=== PATIENT | female | born 1940 | race Caucasian/White ===

== ENCOUNTER → 2016-10-18 | Outpatient (CLI) | payer MEDICARE, BC ==
--- NOTE | 2016-10-18 13:52 | XR ---
EXAMINATION TYPE: XR chest 2V DATE OF EXAM: 10/18/2016 1:46 PM COMPARISON: Chest x-ray February 26, 2016. CT chest June 02, 2016. HISTORY: Carcinoma of right breast per order. TECHNIQUE: Frontal and lateral views of the chest are obtained. FINDINGS: Large thick-walled cavitary lesion superior aspect left lower lobe is redemonstrated. Righ t lung is clear. No pleural effusion or pneumothorax is seen bilaterally. The cardiac silhouette size is stable and within normal limits with atherosclerotic thoracic aorta. The osseous structures are demineralized. There is high riding right humeral head suggesting chronic rotator cuff tear. There i s deformity of the distal right clavicle which is superiorly migrated felt chronic. Surgical clips in the right breast are noted. IMPRESSION: Stable large cavitary mass superior left lower lobe which was biopsied November 2015. No acu te cardiopulmonary process.
== END | disposition home or self-care (01) ==
LOC: RADXRMAIN 13:26
PROVIDERS: ATTEND Internal Medicine Geriatric Medicine
DX: C50.411 Malignant neoplasm of upper-outer quadrant of right female breast (principal); M54.9 Dorsalgia, unspecified; R91.1 Solitary pulmonary nodule; I10 Essential (primary) hypertension; E78.5 Hyperlipidemia, unspecified; M15.0 Primary generalized (osteo)arthritis; M81.0 Age-related osteoporosis without current pathological fracture; G45.9 Transient cerebral ischemic attack, unspecified; Z71.3 Dietary counseling and surveillance; Z71.89 Other specified counseling
CPT/HCPCS: 71020

== ENCOUNTER 2017-01-24 11:30 | Emergency (ER) | payer MEDICARE, BC ==
[2017-01-24 12:37] LABS: Basophils % (A) 0 %; CH 32.2; CHCM 34.5; Eosinophils # (A) 0.1 k/uL (0-0.7); Eosinophils % (A) 1 %; HCT 42.6 % (34.0-46.0); HDW 2.33; HGB 14.3 gm/dL (11.4-16.0); Luc # (Auto) 0.06; Luc % (Auto) 1; Lymphocytes % (A) 12 %; MCH 31.4 pg (25.0-35.0); MCHC 33.5 g/dL (31.0-37.0); MCV 93.8 fL (80.0-100.0); Mean Platelet Volume 7.6; Monocytes # (A) 0.4 k/uL (0-1.0); Monocytes % (A) 5 %; Neutrophils # (A) 6.9 k/uL (1.3-7.7); Neutrophils % (A) 81 %; RBC 4.55 m/uL (3.80-5.40); RDW 14.1 % (11.5-15.5); WBC 8.5 k/uL (3.8-10.6); WBC (Perox) 8.59
[2017-01-24 12:48] LABS: ALT 47 U/L (9-52); AST 48 U/L (14-36); Alkaline Phosphatase 77 U/L (38-126); Amylase 33 U/L (30-110); Anion Gap 12 mmol/L; Blood Urea Nitrogen 14 mg/dL (7-17); Calcium 9.4 mg/dL (8.4-10.2); Carbon Dioxide 22 mmol/L (22-30); Chloride 102 mmol/L (98-107); Glucose 95 mg/dL (74-99); Non-African American GFR(MDRD) >60 (>60 ml/min/1.73 sqM); Sodium 136 mmol/L (137-145); Total Bilirubin 1.2 mg/dL (0.2-1.3); Total Protein 7.4 g/dL (6.3-8.2)
[2017-01-24 12:51] LABS: Potassium 4.3 mmol/L (3.5-5.1)
--- NOTE | 2017-01-24 12:58 | XR ---
EXAMINATION TYPE: XR chest 2V DATE OF EXAM: 01/24/2017 COMPARISON: Chest x-ray October 18, 2016. HISTORY: History of breast cancer with lung mass. TECHNIQUE: Frontal and lateral views of the chest are obtained. FINDINGS: There is persistent thick-walled cavitary lesion superior aspect left lower lobe appears m ore prominent in size versus prior. Right lung remains clear. No pleural effusion or pneumothorax is seen bilaterally. The cardiac silhouette size remains within normal limits without sclerotic and ect atic thoracic aorta. There is partial visualization of surgical change in the lumbar spine. There is degenerative change right glenohumeral joint. Surgical clips overlie the right breast. Cholecystectom y clips are seen. IMPRESSION: Redemonstration of thick-walled cavitary lesion superior left lower lobe, differential i ncludes abscess versus neoplasm. No new infiltrate is seen.
[2017-01-24 13:02] LABS: C Reactive Protein 5.2 mg/L (<10.0)
--- NOTE | 2017-01-24 13:03 | XR ---
EXAMINATION TYPE: XR KUB DATE OF EXAM: 01/24/2017 12:29 PM CLINICAL HISTORY: Abdominal pain for 3 days. TECHNIQUE: Single upright KUB image of the abdomen is obtained. COMPARISON: None. FINDINGS: Scattered gas is seen in non-distended stomach and small bowel loops. Gas and fecal materia l is seen in non-distended colon. Cholecystectomy clips are present. Extensive surgical change from L 3 through S1 level is present. Metallic hardware from right hip arthroplasty is seen. No pneumoperito neum is present. Surgical clips overlie the right breast. Lung bases are clear. IMPRESSION: Overall nonobstructive bowel gas pattern.
--- NOTE | 2017-01-24 13:17 | CT ---
EXAMINATION TYPE: CT brain wo con DATE OF EXAM: 01/24/2017 COMPARISON: 12/22/2015 HISTORY: Patient poor historian. Patient complains of syncopal fall today. CT DLP: 1106 mGycm Automated exposure control for dose reduction was used. FINDINGS: Generalized degenerative change seen with a greater central component. Extensive periventricular low attenuation noted. Intracranial atherosclerotic changes seen. No midline shift. No acute hemorrhage. Abnormal attenuation within the external capsule on the left suggestive of previous ischemia stable f rom previous. IMPRESSION: DEGENERATIVE CHANGE WITH A GREATER CENTRAL COMPONENT. A COMPONENT OF NORMAL PRESSURE HYDROCEPHALUS IN THE DIFFERENTIAL DIAGNOSIS. NEXT NONSPECIFIC WHITE MATTER FINDINGS MOST TYPICAL REMOTE MICROVASCULAR ISCHEMIA..
[2017-01-24 14:13] VITALS: TEMP 97.6
[2017-01-24 14:42] LABS: Amorphous Sediment,Urine Occasional /hpf; Appearance,Urine Cloudy (Clear); Bilirubin,Urine 1+ (Negative); Glucose,Urine (UA) Negative (Negative); Ketones,Urine 1+ (Negative); Leukocyte Esterase,Urine Moderate (Negative); Mucus,Urine Few /hpf; Nitrite,Urine Negative (Negative); Particle Count 10295; Protein,Urine Trace (Negative); RBC,Urine 3 /hpf (0-5); Specific Gravity,Urine 1.016 (1.001-1.035); Squamous Epithelial Cell,Urine 7 /hpf (0-4); UA Billing (MACRO vs. MICRO) MICRO; WBC,Urine 16 /hpf (0-5)
--- NOTE | 2017-01-24 14:49 | ED ---
Abdominal Pain HPI - General Chief Complaint: Abdominal Pain Stated Complaint: ABD PAIN, FALL THIS AM Time Seen by Provider: 01/24/17 11:55 Source: patient Mode of arrival: wheelchair Limitations: no limitations - History of Present Illness Initial Comments: 76 years old female presents with abdominal pain abdominal pain is ongoing for 3 days she denies any nausea no vomiting no diarrhea no constipation pain is in the epigastric area. No chest pain or shortness of breath no pleuritic chest pain. She fell this morning but she denies any injury to her head or neck no chest pain no injuries to the upper or lower extremities. Left system is otherwise unremarkable - Related Data Previous Rx's Medication Instructions Recorded Acetaminophen-Codeine 300-30mg 1 tab PO Q6H PRN #15 tablet 05/26/15 [Tylenol w/codeine #3] Allergies Allergy/AdvReac Type Severity Reaction Status Date / Time No Known Allergies Allergy Verified 01/24/17 13:15 Review of Systems ROS Statement: Those systems with pertinent positive or pertinent negative responses have been documented in the HPI. ROS Other: All systems not noted in ROS Statement are negative. Past Medical History Past Medical History: Cancer, GERD/Reflux, Hyperlipidemia, Hypertension Additional Past Medical History / Comment(s): Metastatic lung mass november [address] Shepard. breast Ca - 2013 status post right lumpectomy History of Any Multi-Drug Resistant Organisms: None Reported Past Surgical History: Back Surgery, Cholecystectomy, Joint Replacement, Orthopedic Surgery Additional Past Surgical History / Comment(s): bilateral bunionectomy, right hip replacement, right breast lumpectomy - no chemo, no radiation, bilateral cataract removal and intraocular lens implants. Past Anesthesia/Blood Transfusion Reactions: No Reported Reaction Past Psychological History: No Psychological Hx Reported Smoking Status: Never smoker Past Alcohol Use History: Daily Past Drug Use History: None Reported - Past Family History Sister(s) Family Medical History: Cancer Additional Family Medical History / Comment(s): Patient has 2 sisters. One sister is alive with dementia. One sister from pancreatic cancer. Brother(s) Family Medical History: Cancer Additional Family Medical History / Comment(s): Brother from spinal cancer Father Additional Family Medical History / Comment(s): Father at age 88 from dementia. Mother Additional Family Medical History / Comment(s): Mother at age 93 from old age with no major medical problems. Son(s) Additional Family Medical History / Comment(s): Patient has 2 sons with no major medical problems. General Exam - General Exam Comments Initial Comments: General: The patient is awake and alert, in no distress, and does not appear acutely ill. Skin: Skin is warm and dry and no rashes or lesions are noted. Eye: Pupils are equal, round and reactive to light, extra-ocular movements are intact; there is normal conjunctiva bilaterally. Ears, nose, mouth and throat: There are moist mucous membranes and no oral lesions. Neck: The neck is supple, there is no tenderness or JVD. Cardiovascular: There is a regular rate and rhythm. No murmur, rub or gallop is appreciated. Respiratory: To auscultation bilateral, no wheezing no rhonchi no distress respiratory garcia noticed Gastrointestinal: Soft, non-distended, non-tender abdomen without masses or organomegaly noted. There is no rebound or guarding present. Bowel sounds are unremarkable. Today exam is absolutely normal there were no focal tenderness areas in the abdomen positive bowel sounds no guarding no rebounds Back: There is no tenderness to palpation in the midline. There is no obvious deformity. Musculoskeletal: Normal ROM, no tenderness, There is no pedal edema. There is no calf tenderness or swelling. No cords were appreciated. Neurological: CN II-XII intact, Cranial nerves III through XII are intact. There are no obvious motor or sensory deficits. Coordination appears grossly intact. Speech is normal. Psychiatric: Cooperative, appropriate mood & affect, normal judgment. Limitations: no limitations Course Vital Signs 01/24/17 01/24/17 01/24/17 11:38 13:11 14:10 Temperature 98.3 F 97.2 F L 97.6 F Pulse Rate 108 H 97 119 H Respiratory 20 14 15 Rate Blood Pressure 128/65 143/74 140/82 O2 Sat by Pulse 97 95 93 L Oximetry Patient was reviewed at 1430 had CBC, His metabolic panel KUB are unremarkable My head CT was reviewed, there is a question of for chronic ischemic changes and normal rash or hydrocephalus, this was discussed with the Dr. Ashby she has a history of urinary incontinence for last 2 years and her gait has been quite wobbly for the last 2 years as well though she has no dementia Dr. Ashby he agreed to see her as outpatient though she is edematous andCenter Dr. Liu was not available today. X-rays and there is a question of fluid level in a finding which is consistent with neoplasm Is a Urinalysis Is Also Positive Considering All That Number Recommended We Admit Him under Dr. Patricia Service - Reevaluation(s) Reevaluation #2: 01/24/17 15:13 She agreed to stay in PLACE DR. PATRICIA AND RECOMMENDED CT PULMONARY MEDICINE TO TAKE A LOOK AT THE LESION ON THE LEFT SIDE SEE IF THERE IS A NEW ABSCESS IN THE THE AREA WHERE THERE IS A SUSPICION OF FOR CANCER Medical Decision Making - Lab Data Result diagrams: 01/24/17 12:24 01/24/17 12:24 Lab Results 01/24/17 01/24/17 01/24/17 Range/Units 12:24 12:24 14:24 WBC 8.5 (3.8-10.6) k/uL RBC 4.55 (3.80-5.40) m/uL Hgb 14.3 (11.4-16.0) gm/dL Hct 42.6 (34.0-46.0) % MCV 93.8 (80.0-100.0) fL MCH 31.4 (25.0-35.0) pg MCHC 33.5 (31.0-37.0) g/dL RDW 14.1 (11.5-15.5) % Plt Count 292 (150-450) k/uL Neutrophils % 81 % Lymphocytes % 12 % Monocytes % 5 % Eosinophils % 1 % Basophils % 0 % Neutrophils # 6.9 (1.3-7.7) k/uL Lymphocytes # 1.0 (1.0-4.8) k/uL Monocytes # 0.4 (0-1.0) k/uL Eosinophils # 0.1 (0-0.7) k/uL Basophils # 0.0 (0-0.2) k/uL Sodium 136 L (137-145) mmol/L Potassium 4.3 (3.5-5.1) mmol/L Chloride 102 (98-107) mmol/L Carbon Dioxide 22 (22-30) mmol/L Anion Gap 12 mmol/L BUN 14 (7-17) mg/dL Creatinine 0.66 (0.52-1.04) mg/dL Est GFR (MDRD) Af Amer >60 (>60 ml/min/1.73 sqM) Est GFR (MDRD) Non-Af >60 (>60 ml/min/1.73 sqM) Glucose 95 (74-99) mg/dL Calcium 9.4 (8.4-10.2) mg/dL Total Bilirubin 1.2 (0.2-1.3) mg/dL AST 48 H (14-36) U/L ALT 47 (9-52) U/L Alkaline Phosphatase 77 (38-126) U/L C-Reactive Protein 5.2 (<10.0) mg/L Total Protein 7.4 (6.3-8.2) g/dL Albumin 4.2 (3.5-5.0) g/dL Amylase 33 (30-110) U/L Lipase 58 (23-300) U/L Urine Color Yellow Urine Appearance Cloudy H (Clear) Urine pH 6.0 (5.0-8.0) Ur Specific [place] 1.016 (1.001-1.035) Urine Protein Trace H (Negative) Urine Glucose (UA) Negative (Negative) Urine Ketones 1+ H (Negative) Urine Blood Negative (Negative) Urine Nitrite Negative (Negative) Urine Bilirubin 1+ H (Negative) Urine Urobilinogen 2.0 (<2.0) mg/dL Ur Leukocyte Esterase Moderate H (Negative) Urine RBC 3 (0-5) /hpf Urine WBC 16 H (0-5) /hpf Ur Squamous Epith Cells 7 H (0-4) /hpf Amorphous Sediment Occasional H (None) /hpf Hyaline Casts 23 H (0-2) /lpf Urine Mucus Few H (None) /hpf Disposition Clinical Impression: Abdominal pain, UTI (urinary tract infection), Lung abscess Disposition: ADMITTED IP TO THIS HOSP Condition: Good Referrals: Aren Patricia MD [Primary Care Provider] - 1-2 days
[2017-01-24] MEDS ORDERED: RX INFO: IV CONTRAST WAS GIVEN 1 EACH MISC MISCELLANE PRN (15:24)
[2017-01-24 16:16] VITALS: RESP 18
--- NOTE | 2017-01-24 16:30 | CT ---
EXAMINATION TYPE: CT ChestAbdPelvis w con DATE OF EXAM: 01/24/2017 COMPARISON: NONE HISTORY: Mid abdominal pain x 3 days. Fall from standing. CT DLP: 464.70 mGycm Automated exposure control for dose reduction was used. CONTRAST: CT scan of the chest, abdomen and pelvis is performed without Oral Contrast and with IV Contrast, pat ient injected with 100 mL of Omnipaque 300. FINDINGS: LUNGS: There is a large hilar mass measuring 5 cm with an associated cavitary lesion in the left uppe r lobe measuring approximately 6.2 x 4.2 cm. This does result in some constriction of the left pulmon herberth arterial branches. No pleural effusion or pneumothorax. Subpleural less than 5 mm nodularity post eriorly in the right lower lobe. Additional punctate 2 mm nodules within the right middle lobe. MEDIASTINUM: There are no greater than 1 cm hilar or mediastinal lymph nodes. No pericardial effusi on is seen. Coronary artery calcification noted. LIVER/GB: 2.3 cm lesion involving the left lobe of the liver measures 15 Hounsfield units suggestive of a cyst and is stable from previous exam. Postcholecystectomy clips are noted.. PANCREAS: No significant abnormality is seen. SPLEEN: No significant abnormality is seen. ADRENALS: 5 mm left adrenal nodule is new. A metastasis is not excluded.. KIDNEYS: No significant abnormality is seen. BOWEL: No significant abnormality is seen. LYMPH NODES: No greater than 1 cm abdominal or pelvic lymph nodes are appreciated. OSSEOUS STRUCTURES: Multilevel degenerative disc disease and facet arthropathy seen. There is postsur gical change of the lower lumbar spine with a grade 1 anterolisthesis at the upper margin of the surg ical levels. Mild endplate deformity seen proximal level of L1 and T12 suggesting and appears stable from the previous CT scan of the chest. OTHER: Calcified fibroids within the uterus noted. Postsurgical change involving the right hip. IMPRESSION: 1. No acute process however, there is a large mass in the left upper lobe suspicious for malignancy w ith adenopathy and additional pulmonary nodules as discussed above. 2. There is a new left adrenal nodule suspicious for metastases.
[2017-01-24 17:36] VITALS: BP 156/87; PULSE 104
== END 2017-01-24 17:36 | disposition other institution (70) ==
LOC: EC 11:30
DX: N39.0 Urinary tract infection, site not specified (principal); J85.2 Abscess of lung without pneumonia; Z85.3 Personal history of malignant neoplasm of breast; Z90.49 Acquired absence of other specified parts of digestive tract
CPT/HCPCS: 99285; 96365; 36415; 80053; 82150; 83690; 85025; 86140; 81001; 71020; 74000; 70450; 71260; 74177; J0696; Q9967

== ENCOUNTER 2017-02-26 09:29 | Inpatient (IN) | payer MEDICARE, BC ==
[2017-02-26] MEDS ORDERED: SODIUM CHLORIDE 0.9% 500 ML IV STA (09:33)
--- NOTE | 2017-02-26 09:48 | ED ---
General Adult HPI - General Stated complaint: Unresponsive Time Seen by Provider: 02/26/17 09:29 Source: RN notes reviewed - History of Present Illness Initial comments: This a 76-year-old female presents emergency department after having had a syncopal episode. Patient states she's had multiple syncopal episodes in the past and he cannot figure out why she is having these events. Patient states that she has having no complaints this time and she did not herself when she fell. According to EMS when they got there she was awake but not answering any questions and she slowly came around and by the time they were 10 minutes at a trip to the hospital she was alert and oriented 3 and talking about the recent news events. called us prior to the patient's arrival and states this happened multiple times and he states he has been told it is not a stroke. Patient denies any headache patient denies numbness weakness. Patient denies lightheadedness dizziness. Patient denies any chest pain palpitations difficulty breathing first breath per patient denies abdominal pain patient denies nausea vomiting diarrhea. Patient's sugar on the way in per EMS was 130. - Related Data Previous Rx's Medication Instructions Recorded Acetaminophen-Codeine 300-30mg 1 tab PO Q6H PRN #15 tablet 05/26/15 [Tylenol w/codeine #3] Allergies Allergy/AdvReac Type Severity Reaction Status Date / Time No Known Allergies Allergy Verified 02/26/17 10:32 Review of Systems ROS Statement: Those systems with pertinent positive or pertinent negative responses have been documented in the HPI. ROS Other: All systems not noted in ROS Statement are negative. Past Medical History Past Medical History: Cancer, GERD/Reflux, Hyperlipidemia, Hypertension Additional Past Medical History / Comment(s): Metastatic lung mass november [address] Shepard. breast Ca - 2013 status post right lumpectomy History of Any Multi-Drug Resistant Organisms: None Reported Past Surgical History: Back Surgery, Cholecystectomy, Joint Replacement, Orthopedic Surgery Additional Past Surgical History / Comment(s): bilateral bunionectomy, right hip replacement, right breast lumpectomy - no chemo, no radiation, bilateral cataract removal and intraocular lens implants. Past Anesthesia/Blood Transfusion Reactions: No Reported Reaction Past Psychological History: No Psychological Hx Reported Smoking Status: Never smoker Past Alcohol Use History: Daily Past Drug Use History: None Reported - Past Family History Sister(s) Family Medical History: Cancer Additional Family Medical History / Comment(s): Patient has 2 sisters. One sister is alive with dementia. One sister from pancreatic cancer. Brother(s) Family Medical History: Cancer Additional Family Medical History / Comment(s): Brother from spinal cancer Father Additional Family Medical History / Comment(s): Father at age 88 from dementia. Mother Additional Family Medical History / Comment(s): Mother at age 93 from old age with no major medical problems. Son(s) Additional Family Medical History / Comment(s): Patient has 2 sons with no major medical problems. General Exam - General Exam Comments Initial Comments: GENERAL: Patient is well-developed and well-nourished. Patient is nontoxic and well- hydrated and is in no acute distress. ENT: Neck is soft and supple. No significant lymphadenopathy is noted. Oropharynx is clear. Moist mucous membranes. Neck has full range of motion without eliciting any pain. EYES: The sclera were anicteric and conjunctiva were pink and moist. Extraocular movements were intact and pupils were equal round and reactive to light. Eyelids were unremarkable. PULMONARY: Unlabored respirations. Good breath sounds bilaterally. No audible rales rhonchi or wheezing was noted. CARDIOVASCULAR: There is a regular rate and rhythm without any murmurs gallops or rubs. ABDOMEN: Soft and nontender with normal bowel sounds. No palpable organomegaly was noted. There is no palpable pulsatile mass. SKIN: Skin is clear with no lesions or rashes and otherwise unremarkable. NEUROLOGIC: Patient is alert and oriented x3. Cranial nerves II through XII are grossly intact. Motor and sensory are also intact. Normal speech, volume and content. Symmetrical smile. MUSCULOSKELETAL: Normal extremities with adequate strength and full range of motion. No lower extremity swelling or edema. No calf tenderness. LYMPHATICS: No significant lymphadenopathy is noted PSYCHIATRIC: Normal psychiatric evaluation. Normal interpersonal interactions appears functionally intact in deals appropriately with others. No signs of depression. No signs of anxiety. Course Vital Signs 02/26/17 02/26/17 02/26/17 09:35 10:09 11:00 Temperature 97.3 F L Pulse Rate 88 88 Pulse Rate [ 80 Sitting] Pulse Rate [ 72 Standing] Pulse Rate [ 90 Supine] Respiratory 18 16 Rate Blood Pressure 189/106 188/98 Blood Pressure 167/95 [Sitting] Blood Pressure 124/82 [Standing] Blood Pressure 183/112 [Supine] O2 Sat by Pulse 96 98 Oximetry 02/26/17 12:01 Temperature Pulse Rate 89 Pulse Rate [ Sitting] Pulse Rate [ Standing] Pulse Rate [ Supine] Respiratory 18 Rate Blood Pressure 167/105 Blood Pressure [Sitting] Blood Pressure [Standing] Blood Pressure [Supine] O2 Sat by Pulse 99 Oximetry Medical Decision Making - Medical Decision Making EKG shows normal sinus rhythm at 80 bpm AL interval is on a 44 QRS is 70 QT interval 360 QTC is 435 per patient's EKG shows no ST segment elevation or depression Chest x-ray shows a tumor that was seen in previous x-rays - Lab Data Result diagrams: 02/26/17 09:45 02/26/17 09:45 Lab Results 02/26/17 02/26/17 02/26/17 Range/Units 09:45 09:45 09:45 WBC 8.5 (3.8-10.6) k/uL RBC 4.61 (3.80-5.40) m/uL Hgb 14.3 (11.4-16.0) gm/dL Hct 42.6 (34.0-46.0) % MCV 92.4 (80.0-100.0) fL MCH 31.0 (25.0-35.0) pg MCHC 33.6 (31.0-37.0) g/dL RDW 13.6 (11.5-15.5) % Plt Count 353 (150-450) k/uL Neutrophils % 77 % Lymphocytes % 17 % Monocytes % 4 % Eosinophils % 1 % Basophils % 1 % Neutrophils # 6.5 (1.3-7.7) k/uL Lymphocytes # 1.5 (1.0-4.8) k/uL Monocytes # 0.3 (0-1.0) k/uL Eosinophils # 0.1 (0-0.7) k/uL Basophils # 0.1 (0-0.2) k/uL PT (9.0-12.0) sec INR (<1.2) APTT (22.0-30.0) sec Sodium 140 (137-145) mmol/L Potassium 3.7 (3.5-5.1) mmol/L Chloride 103 (98-107) mmol/L Carbon Dioxide 27 (22-30) mmol/L Anion Gap 10 mmol/L BUN 7 (7-17) mg/dL Creatinine 0.63 (0.52-1.04) mg/dL Est GFR (MDRD) Af Amer >60 (>60 ml/min/1.73 sqM) Est GFR (MDRD) Non-Af >60 (>60 ml/min/1.73 sqM) Glucose 125 H (74-99) mg/dL Calcium 9.6 (8.4-10.2) mg/dL Magnesium 1.9 (1.6-2.3) mg/dL Total Bilirubin 0.8 (0.2-1.3) mg/dL AST 49 H (14-36) U/L ALT 42 (9-52) U/L Alkaline Phosphatase 147 H (38-126) U/L Total Creatine Kinase 45 (30-135) U/L CK-MB (CK-2) 1.3 (0.0-2.4) ng/mL CK-MB (CK-2) Rel Index 2.9 Troponin I <0.012 (0.000-0.034) ng/mL Total Protein 7.1 (6.3-8.2) g/dL Albumin 3.7 (3.5-5.0) g/dL 02/26/17 Range/Units 09:45 WBC (3.8-10.6) k/uL RBC (3.80-5.40) m/uL Hgb (11.4-16.0) gm/dL Hct (34.0-46.0) % MCV (80.0-100.0) fL MCH (25.0-35.0) pg MCHC (31.0-37.0) g/dL RDW (11.5-15.5) % Plt Count (150-450) k/uL Neutrophils % % Lymphocytes % % Monocytes % % Eosinophils % % Basophils % % Neutrophils # (1.3-7.7) k/uL Lymphocytes # (1.0-4.8) k/uL Monocytes # (0-1.0) k/uL Eosinophils # (0-0.7) k/uL Basophils # (0-0.2) k/uL PT 10.3 (9.0-12.0) sec INR 1.0 (<1.2) APTT 20.4 L (22.0-30.0) sec Sodium (137-145) mmol/L Potassium (3.5-5.1) mmol/L Chloride (98-107) mmol/L Carbon Dioxide (22-30) mmol/L Anion Gap mmol/L BUN (7-17) mg/dL Creatinine (0.52-1.04) mg/dL Est GFR (MDRD) Af Amer (>60 ml/min/1.73 sqM) Est GFR (MDRD) Non-Af (>60 ml/min/1.73 sqM) Glucose (74-99) mg/dL Calcium (8.4-10.2) mg/dL Magnesium (1.6-2.3) mg/dL Total Bilirubin (0.2-1.3) mg/dL AST (14-36) U/L ALT (9-52) U/L Alkaline Phosphatase (38-126) U/L Total Creatine Kinase (30-135) U/L CK-MB (CK-2) (0.0-2.4) ng/mL CK-MB (CK-2) Rel Index Troponin I (0.000-0.034) ng/mL Total Protein (6.3-8.2) g/dL Albumin (3.5-5.0) g/dL Disposition Clinical Impression: Syncope and collapse Disposition: ADMITTED IP TO THIS [facility] Referrals: Aren Patricia MD [Primary Care Provider] - 1-2 days Time of Disposition: 11:43
[2017-02-26 10:01] LABS: Basophils # (A) 0.1 k/uL (0-0.2); Basophils % (A) 1 %; CH 31.5; CHCM 34.3; Eosinophils # (A) 0.1 k/uL (0-0.7); Eosinophils % (A) 1 %; HCT 42.6 % (34.0-46.0); HDW 2.59; HGB 14.3 gm/dL (11.4-16.0); Luc # (Auto) 0.06; Luc % (Auto) 1; Lymphocytes # (A) 1.5 k/uL (1.0-4.8); Lymphocytes % (A) 17 %; MCHC 33.6 g/dL (31.0-37.0); MCV 92.4 fL (80.0-100.0); Mean Platelet Volume 6.9; Monocytes # (A) 0.3 k/uL (0-1.0); Monocytes % (A) 4 %; Neutrophils # (A) 6.5 k/uL (1.3-7.7); Neutrophils % (A) 77 %; RBC 4.61 m/uL (3.80-5.40); RDW 13.6 % (11.5-15.5); WBC 8.5 k/uL (3.8-10.6); WBC (Perox) 8.15
[2017-02-26 10:14] LABS: ALT 42 U/L (9-52); AST 49 U/L (14-36); Alkaline Phosphatase 147 U/L (38-126); Anion Gap 10 mmol/L; Blood Urea Nitrogen 7 mg/dL (7-17); Calcium 9.6 mg/dL (8.4-10.2); Carbon Dioxide 27 mmol/L (22-30); Chloride 103 mmol/L (98-107); Glucose 125 mg/dL (74-99); Magnesium 1.9 mg/dL (1.6-2.3); Non-African American GFR(MDRD) >60 (>60 ml/min/1.73 sqM); Potassium 3.7 mmol/L (3.5-5.1); Sodium 140 mmol/L (137-145); Total Bilirubin 0.8 mg/dL (0.2-1.3); Total Protein 7.1 g/dL (6.3-8.2)
[2017-02-26 10:16] LABS: Prothrombin Time 10.3 sec (9.0-12.0)
[2017-02-26 10:26] LABS: Creatine Kinase 45 U/L (30-135)
[2017-02-26 10:35] LABS: Partial Thromboplastin Time 20.4 sec (22.0-30.0)
[2017-02-26 10:39] LABS: Creatine Kinase MB 1.3 ng/mL (0.0-2.4); Troponin I <0.012 ng/mL (0.000-0.034)
--- NOTE | 2017-02-26 10:50 | XR ---
EXAMINATION TYPE: XR chest 2V DATE OF EXAM: 02/26/2017 HISTORY: Chest Pain. REFERENCE: Previous study dated 01/24/2017. FINDINGS: The patient 6 cm cavitary lesion in the superior segment of the left lower lobe is again id entified. There has developed collapse of the left upper lobe. The right lung remains clear. The hear t is not enlarged. IMPRESSION: INTERVAL DEVELOPMENT OF SEVERE ATELECTASIS OF THE LEFT UPPER LOBE.
[2017-02-26] MEDS ORDERED: SODIUM CHLORIDE 0.9% 1,000 ML IV ONE (11:43)
[2017-02-26 13:50] VITALS: BMI 23.4
[2017-02-26] MEDS ORDERED: HYDROcodone/APAP 7.5-325MG 1 EACH TAB PO PRN (14:32)
[2017-02-26] MEDS ORDERED: VALSARTAN 80 MG TAB PO STA (14:37)
--- NOTE | 2017-02-26 14:57 | P.CONS ---
History of Present Illness - Reason for Consult Consult date: 02/26/17 syncope - Chief Complaint syncope - History of Present Illness Is a pleasant 76-year-old female being evaluated by the neurology service for an episode of syncope. History this episode was given by her who came in and found her on the floor shortly after she tried to transfer from bed to her wheelchair. He found her unresponsive on the floor and does report some abnormal movements that he think may be coughing versus convulsing. EMS was called and by the time she arrived in the emergency room she was alert and oriented 3. She has had episodes like this before and there has been no known cause according to them. She does have a significant history of breast cancer with a large left lung lesion. She is under the care of oncology currently a CT of the brain was done emergency room and showed no acute intracranial abnormalities. It did show chronic small vessel ischemia. Was also evidence of nonspecific remote microvascular ischemia which is stable from the previous study of 2015. She also had recent CT studies done on January 24 which showed a large left upper lung mass with some hilar adenopathy. There was also a left adrenal notable finding questionable for metastasis. They do say that this is already been discussed with their oncologist Dr. Shepard. At the time of my exam she is resting comfortably in bed in no acute distress. Review of Systems All systems: negative Constitutional: Reports as per HPI Past Medical History Past Medical History: Cancer, GERD/Reflux, Hyperlipidemia, Hypertension Additional Past Medical History / Comment(s): Metastatic lung mass november [address] Shepard. breast Ca - 2013 status post right lumpectomy History of Any Multi-Drug Resistant Organisms: None Reported Past Surgical History: Back Surgery, Cholecystectomy, Joint Replacement, Orthopedic Surgery Additional Past Surgical History / Comment(s): bilateral bunionectomy, right hip replacement, right breast lumpectomy - no chemo, no radiation, bilateral cataract removal and intraocular lens implants. Past Anesthesia/Blood Transfusion Reactions: No Reported Reaction Past Psychological History: No Psychological Hx Reported Smoking Status: Never smoker Past Alcohol Use History: Daily Past Drug Use History: None Reported - Past Family History Sister(s) Family Medical History: Cancer Additional Family Medical History / Comment(s): Patient has 2 sisters. One sister is alive with dementia. One sister from pancreatic cancer. Brother(s) Family Medical History: Cancer Additional Family Medical History / Comment(s): Brother from spinal cancer Father Additional Family Medical History / Comment(s): Father at age 88 from dementia. Mother Additional Family Medical History / Comment(s): Mother at age 93 from old age with no major medical problems. Son(s) Additional Family Medical History / Comment(s): Patient has 2 sons with no major medical problems. Medications and Allergies Home Medications Medication Instructions Recorded Confirmed Type Acetaminophen-Codeine 300-30mg 1 tab PO Q6H PRN #15 tablet 05/26/15 02/26/17 Rx [Tylenol w/codeine #3] Allergies Allergy/AdvReac Type Severity Reaction Status Date / Time No Known Allergies Allergy Verified 02/26/17 10:32 Physical Exam Vitals: Vital Signs Temp Pulse Pulse Pulse Pulse Resp BP 02/26/17 13:53 18 02/26/17 13:06 90 18 166/89 02/26/17 12:01 89 18 167/105 02/26/17 11:00 88 16 188/98 02/26/17 10:09 80 72 90 02/26/17 09:35 97.3 F L 88 18 189/106 BP BP BP Pulse Ox 02/26/17 13:53 02/26/17 13:06 97 02/26/17 12:01 99 02/26/17 11:00 98 02/26/17 10:09 167/95 124/82 183/112 02/26/17 09:35 96 Intake and Output 02/25/17 02/26/17 02/26/17 22:59 06:59 14:59 Other: Weight 54.431 kg Patient Weight 02/27/17 06:59 Weight 54.431 kg - Constitutional General appearance: cooperative, no acute distress, thin - EENT Eyes: no abnormal pupil, EOMI, PERRLA, no ptosis ENT: hearing grossly normal - Neck Neck: normal ROM, no rigidity Thyroid: bilateral: normal size - Respiratory Respiratory: negative: prolonged expiration, prolonged inspiration - Cardiovascular Rhythm: regular - Gastrointestinal General gastrointestinal: no distended, no tenderness - Neurologic The patient is alert and oriented 3. Speech-language are normal. There is no facial asymmetry. No tremors or seizure-like activities are seen. Strength is full in bilateral upper lower extremities. There is no sensory deficit. Results CBC & Chem 7: 02/26/17 09:45 02/26/17 09:45 Labs: Abnormal Lab Results - Last 24 Hours (Table) 02/26/17 02/26/17 Range/Units 09:45 09:45 APTT 20.4 L (22.0-30.0) sec Glucose 125 H (74-99) mg/dL AST 49 H (14-36) U/L Alkaline Phosphatase 147 H (38-126) U/L Assessment and Plan Plan: She has suffered a syncopal episode of unknown origin. Her CT showed no acute intracranial abnormalities. Given her significant history of cancer I will order an MRI of the brain with and without contrast. I will also order carotid Doppler. An EEG has been ordered due to the re-reports by her of potential seizure activity during her period of unconsciousness. Physical and occupational patient therapy may be considered at this point. I have consulted oncology as I am not sure they are aware of her most current computed tomography scan. They may want to follow up in the outpatient setting. We will continue to follow and make further recommendations based on the above studies. I have performed a history and physical on the above patient. I have reviewed the above note, and agree.
--- NOTE | 2017-02-26 14:58 | P.HPIM ---
History of Present Illness H&P Date: 02/26/17 Chief Complaint: Syncope This is a 75-year-old female, patient of Dr. Patricia and Dr. Hernandez, with history of breast cancer in 2013 on the right side status post lumpectomy without chemotherapy and radiation with no lymph node involvement. Patient has also been found to have a large left sided lung , metastatic disease from breast cancer since then. She also has past medical history for gastroesophageal reflux disease, hyperlipidemia, hypertension. She presented to the emergency room secondary to acute episode of syncope, patient was getting out of bed and passed out. History is provided by the , and patient was in a seated position wheeling herself from the bed to the living room with her Rollator walker when she passed out in a sitting position. There is no trauma no contusion to the floor, the EMS was later called in 5 minutes later, the patient was starting to arouse this lethargic starting to arouse per the noticed something flapping intermittently, unsure whether its her arms underneath her Clothing or coughing spells with her belly moving up and about. However this doesn't make sense as the did not hear her cough or vomit. When seen emergency room, patient was slightly lethargic and was progressively getting better with mentation, no focal neurologic deficits including speech abnormality, patient also has had diminished appetite for the past several weeks with a 14 pound weight loss in 1 month, patient denies any dysuria, no hematuria no diarrhea. Patient complaints of abdominal pain for which CAT scan of the abdomen and pelvis was performed January 24 that shows new metastatic lesions to the adrenals , and liver cyst pain is in the right upper quadrant region. She saw Dr. Patricia 2 -3 days ago, for the abdominal pain, no new medication changes were made at that time, patient's on Tylenol 3 patient denies any obstipation or abdominal distention Emergency room, urinalysis is unremarkable, no new imaging of the brain was obtained as patient had a CAT scan performed January 24, 2017 with brain at the free possibility of normal pressure hydrocephalus, no ischemic changes then. Review of Systems Constitutional: Reports as per HPI, Reports anorexia, Reports fatigue, Reports lethargy, Reports poor appetite, Reports weight loss, Denies chills, Denies chronic headaches, Denies chronic pain, Denies daytime sleepiness, Denies fever , Denies malaise, Denies night sweats, Denies sweats, Denies weakness, Denies weight gain Ears, nose, mouth and throat: Reports as per HPI, Denies ant. neck pain, Denies bleeding gums, Denies dental pain, Denies dysphagia, Denies epistaxis, Denies headache, Denies hoarseness, Denies mouth pain, Denies nasal congestion, Denies nasal discharge, Denies neck fullness/pressure, Denies neck lump, Denies nose pain, Denies odynophagia, Denies post-nasal drip, Denies sinus pain, Denies sinus pressure, Denies swelling in mouth, Denies swelling in throat, Denies sore throat, Denies vertigo, Denies voice changes Cardiovascular: Reports as per HPI, Denies chest pain, Denies claudication, Denies decreased exercise tolerance, Denies dyspnea on exertion, Denies edema, Denies high blood pressure, Denies irregular heart beat, Denies leg edema, Denies lightheadedness, Denies orthopnea, Denies palpitations, Denies paroxysmal nocturnal dyspnea, Denies phlebitis, Denies rapid heart beat, Denies shortness of breath, Denies syncope Respiratory: Reports as per HPI, Denies congestion, Denies cough, Denies cough with sputum, Denies dyspnea, Denies excessive sputum, Denies hemoptysis, Denies home oxygen, Denies pain, Denies pain on inspiration, Denies pleurisy, Denies respiratory infections, Denies sleep apnea, Denies snoring, Denies wheezing Gastrointestinal: Reports as per HPI, Reports abdominal pain, Denies belching, Denies bloating, Denies BRBPR, Denies change in bowel habits, Denies coffee ground emesis, Denies constipation, Denies diarrhea, Denies dyspepsia, Denies early satiety, Denies excessive gas, Denies heartburn, Denies hematemesis, Denies hematochezia, Denies indigestion, Denies jaundice, Denies lactose intolerance, Denies loss of appetite, Denies melena, Denies nausea, Denies vomiting Genitourinary: Reports as per HPI Menstruation: Reports as per HPI, Reports postmenopausal Musculoskeletal: Reports as per HPI Integumentary: Reports as per HPI Neurological: Reports as per HPI, Reports headaches, Reports memory loss, Reports syncope, Denies aphasia, Denies ataxia, Denies balance difficulties, Denies burning pain, Denies change in mentation, Denies change in smell/taste, Denies change in speech, Denies confusion, Denies convulsions, Denies double vision, Denies gait dysfunction, Denies head injury, Denies hearing difficulties , Denies lack of coordination, Denies loss of vision, Denies migraines, Denies motor disturbance, Denies numbness, Denies paralysis, Denies paresthesias, Denies seizures, Denies sensory deficit, Denies spasticity, Denies tic, Denies tingling, Denies transient paralysis, Denies tremors, Denies vertigo, Denies weakness, Denies visual changes Psychiatric: Reports as per HPI Endocrine: Reports as per HPI, Denies cold intolerance, Denies deepening of the voice, Denies excessive sweating, Denies excessive thirst, Denies fatigue, Denies flushing, Denies heat intolerance, Denies high blood sugars, Denies increase in ring/shoe/hat size, Denies low blood sugars, Denies nocturia, Denies palpitations, Denies polydipsia, Denies polyphagia, Denies polyuria, Denies proptosis, Denies recent glucocorticoid use, Denies thyroid mass, Denies weight change Hematologic/Lymphatic: Reports as per HPI Allergic/Immunologic: Reports as per HPI, Denies allergic rhinitis, Denies anaphylaxis, Denies angioedema, Denies gluten intolerance, Denies persistent infections, Denies seasonal allergies, Denies urticaria, Denies wheezing Past Medical History Past Medical History: Cancer, GERD/Reflux, Hyperlipidemia, Hypertension Additional Past Medical History / Comment(s): Metastatic lung mass november [address] Shepard. breast Ca - 2013 status post right lumpectomy History of Any Multi-Drug Resistant Organisms: None Reported Past Surgical History: Back Surgery, Cholecystectomy, Joint Replacement, Orthopedic Surgery Additional Past Surgical History / Comment(s): bilateral bunionectomy, right hip replacement, right breast lumpectomy - no chemo, no radiation, bilateral cataract removal and intraocular lens implants. Past Anesthesia/Blood Transfusion Reactions: No Reported Reaction Past Psychological History: No Psychological Hx Reported Smoking Status: Never smoker Past Alcohol Use History: Daily Past Drug Use History: None Reported - Past Family History Sister(s) Family Medical History: Cancer Additional Family Medical History / Comment(s): Patient has 2 sisters. One sister is alive with dementia. One sister from pancreatic cancer. Brother(s) Family Medical History: Cancer Additional Family Medical History / Comment(s): Brother from spinal cancer Father Additional Family Medical History / Comment(s): Father at age 88 from dementia. Mother Additional Family Medical History / Comment(s): Mother at age 93 from old age with no major medical problems. Son(s) Additional Family Medical History / Comment(s): Patient has 2 sons with no major medical problems. Medications and Allergies Home Medications Medication Instructions Recorded Confirmed Type Acetaminophen-Codeine 300-30mg 1 tab PO Q6H PRN #15 tablet 05/26/15 02/26/17 Rx [Tylenol w/codeine #3] Allergies Allergy/AdvReac Type Severity Reaction Status Date / Time No Known Allergies Allergy Verified 02/26/17 10:32 Physical Exam Vitals: Vital Signs Temp Pulse Pulse Pulse Pulse Resp BP 02/26/17 12:01 89 18 167/105 02/26/17 11:00 88 16 188/98 02/26/17 10:09 80 72 90 02/26/17 09:35 97.3 F L 88 18 189/106 BP BP BP Pulse Ox 02/26/17 12:01 99 02/26/17 11:00 98 02/26/17 10:09 167/95 124/82 183/112 02/26/17 09:35 96 Intake and Output 02/25/17 02/26/17 02/26/17 22:59 06:59 14:59 Other: Weight 54.431 kg Patient Weight 02/27/17 06:59 Weight 54.431 kg - Constitutional General appearance: cooperative, no acute distress, thin - EENT Eyes: anicteric sclerae, EOMI, PERRLA, dentition normal, normal appearance ENT: hard of hearing, NA/AT, normal oropharynx - Neck Neck: normal ROM - Respiratory Respiratory: bilateral: CTA, negative: diminished, dullness, rales, rhonchi, wheezing - Cardiovascular Rhythm: regular Heart sounds: normal: S1, S2 Abnormal Heart Sounds: no systolic murmur, no diastolic murmur, no rub, no S3 Gallop, no S4 Gallop, no click, no other - Gastrointestinal General gastrointestinal: normal bowel sounds, soft - Integumentary Integumentary: decreased turgor, normal - Neurologic Neurologic: CNII-XII intact - Musculoskeletal Musculoskeletal: generalized weakness, strength equal bilaterally - Psychiatric Psychiatric: A&O x's 3, appropriate affect, intact judgment & insight Results CBC & Chem 7: 02/26/17 09:45 02/26/17 09:45 Labs: Abnormal Lab Results - Last 24 Hours (Table) 02/26/17 02/26/17 Range/Units 09:45 09:45 APTT 20.4 L (22.0-30.0) sec Glucose 125 H (74-99) mg/dL AST 49 H (14-36) U/L Alkaline Phosphatase 147 H (38-126) U/L Laboratory Results WBC 8.5 k/uL (3.8-10.6) 02/26/17 09:45 RBC 4.61 m/uL (3.80-5.40) 02/26/17 09:45 Hgb 14.3 gm/dL (11.4-16.0) 02/26/17 09:45 Hct 42.6 % (34.0-46.0) 02/26/17 09:45 MCV 92.4 fL (80.0-100.0) 02/26/17 09:45 MCH 31.0 pg (25.0-35.0) 02/26/17 09:45 MCHC 33.6 g/dL (31.0-37.0) 02/26/17 09:45 RDW 13.6 % (11.5-15.5) 02/26/17 09:45 Plt Count 353 k/uL (150-450) 02/26/17 09:45 Neutrophils % 77 % 02/26/17 09:45 Lymphocytes % 17 % 02/26/17 09:45 Monocytes % 4 % 02/26/17 09:45 Eosinophils % 1 % 02/26/17 09:45 Basophils % 1 % 02/26/17 09:45 Neutrophils # 6.5 k/uL (1.3-7.7) 02/26/17 09:45 Lymphocytes # 1.5 k/uL (1.0-4.8) 02/26/17 09:45 Monocytes # 0.3 k/uL (0-1.0) 02/26/17 09:45 Eosinophils # 0.1 k/uL (0-0.7) 02/26/17 09:45 Basophils # 0.1 k/uL (0-0.2) 02/26/17 09:45 PT 10.3 sec (9.0-12.0) 02/26/17 09:45 INR 1.0 (<1.2) 02/26/17 09:45 APTT 20.4 sec (22.0-30.0) L 02/26/17 09:45 Sodium 140 mmol/L (137-145) 02/26/17 09:45 Potassium 3.7 mmol/L (3.5-5.1) 02/26/17 09:45 Chloride 103 mmol/L (98-107) 02/26/17 09:45 Carbon Dioxide 27 mmol/L (22-30) 02/26/17 09:45 Anion Gap 10 mmol/L 02/26/17 09:45 BUN 7 mg/dL (7-17) 02/26/17 09:45 Creatinine 0.63 mg/dL (0.52-1.04) 02/26/17 09:45 Est GFR (MDRD) Af Amer >60 (>60 ml/min/1.73 sqM) 02/26/17 09:45 Est GFR (MDRD) Non-Af >60 (>60 ml/min/1.73 sqM) 02/26/17 09:45 Glucose 125 mg/dL (74-99) H 02/26/17 09:45 Calcium 9.6 mg/dL (8.4-10.2) 02/26/17 09:45 Magnesium 1.9 mg/dL (1.6-2.3) 02/26/17 09:45 Total Bilirubin 0.8 mg/dL (0.2-1.3) 02/26/17 09:45 AST 49 U/L (14-36) H 02/26/17 09:45 ALT 42 U/L (9-52) 02/26/17 09:45 Alkaline Phosphatase 147 U/L (38-126) H 02/26/17 09:45 Total Creatine Kinase 45 U/L (30-135) 02/26/17 09:45 CK-MB (CK-2) 1.3 ng/mL (0.0-2.4) 02/26/17 09:45 CK-MB (CK-2) Rel Index 2.9 02/26/17 09:45 Troponin I <0.012 ng/mL (0.000-0.034) 02/26/17 09:45 Total Protein 7.1 g/dL (6.3-8.2) 02/26/17 09:45 Albumin 3.7 g/dL (3.5-5.0) 02/26/17 09:45 Thrombosis Risk Factor Assmnt - DVT/VTE Prophylaxis DVT/VTE Prophylaxis: Pharmacologic Prophylaxis ordered, Mechanical Prophylaxis ordered Assessment and Plan Plan: 1. Acute syncope most likely neurologic in origin, possibility off seizures with postictal-like appearance, however history is very sketchy from family members, patient was seen by neurology as well as an EEG of the brain, MRI of the brain is requested in view off her history of breast cancer and headaches, still needs to be decided whether the patient will be initiated on antiseizure medicine while awaiting clinical data. We'll discuss this further with neurology 2. Known history of breast cancer with metastasis to the left lung mass, and left adrenals, follows by Dr. Shepard consulted Dr. Shepard 40s 1 3. Uncontrolled hypertension, valsartan 80 mg twice a day was started, patient' s family refused any AMARI inhibitor secondary to Amari cough 4. Right upper quadrant pain with previous history of cholecystectomy, liver cyst noted on the previous CT less than 4 weeks ago, patient would have bowel prophylaxis secondary to her Tylenol 3 that she takes, Colace started with when necessary Dulcolax, 5. 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
--- NOTE | 2017-02-26 15:16 | P.PN ---
Subjective Principal diagnosis: Addendum Objective - Vital Signs Vital signs: Vital Signs Temp 97.3 F L 02/26/17 09:35 Pulse 90 02/26/17 13:06 Resp 18 02/26/17 13:53 BP 166/89 02/26/17 13:06 Pulse Ox 97 02/26/17 13:06 Intake & Output 02/25/17 02/26/17 02/26/17 18:59 06:59 18:59 Weight 54.431 kg - Labs CBC & Chem 7: 02/26/17 09:45 02/26/17 09:45 Labs: Abnormal Lab Results - Last 24 Hours (Table) 02/26/17 02/26/17 Range/Units 09:45 09:45 APTT 20.4 L (22.0-30.0) sec Glucose 125 H (74-99) mg/dL AST 49 H (14-36) U/L Alkaline Phosphatase 147 H (38-126) U/L Assessment and Plan (1) Convulsions Status: Suspected (2) Urinary incontinence Status: Chronic (3) Gait abnormality Status: Chronic (4) Syncope and collapse Status: Acute (5) History of right breast cancer Status: Chronic Plan: Addendum to plan of previous note There may also be a component of normal pressure hydrocephalus, which is not an acute concern right now. She has long-standing urinary incontinence which her says has been worse recently. She has long-standing gait abnormalities which her also says have been worse lately. She is not confused. We could perform an outpatient lumbar puncture and do a large volume drainage to see if these symptoms improve. This would be diagnostic for normal pressure hydrocephalus. I have performed a history and physical on the above patient. I have reviewed the above note, and agree.
[2017-02-26] MEDS ORDERED: RX INFO: IV CONTRAST WAS GIVEN 1 EACH MISC MISCELLANE PRN (16:04)
[2017-02-26] MEDS: ONDANSETRON 4 MG/2 ML VIAL IVP PRN (16:16)
[2017-02-26] MEDS: Acetaminophen-Codeine 300-30mg TAB PO PRN (16:17)
[2017-02-26] MEDS: IOHEXOL 350 MG/ML 25 ML BOTTLE (ORAL USE) PO PRN ×2 (16:19→17:15)
--- NOTE | 2017-02-26 17:06 | US ---
EXAMINATION TYPE: US carotid duplex BILAT DATE OF EXAM: 02/26/2017 COMPARISON: 12/20/2015 CLINICAL HISTORY: 76-year-old female syncope. With memory loss. HTN. TECHNIQUE: Carotid duplex ultrasound examination. Direct Doppler criteria was utilized. FINDINGS: Bill scale images show mild atherosclerotic change at the left greater than right bifurcations. EXAM MEASUREMENTS: RIGHT: Peak Systolic Velocity (PSV) cm/sec ----- Right CCA: 61.0 ----- Right ICA: 51.9 ----- Right ECA: 49.0 ICA/CCA ratio: 0.9 RIGHT: End Diastole cm/sec ----- Right CCA: 20.0 ----- Right ICA: 20.6 ----- Right ECA: 9.2 LEFT: Peak Systolic Velocity (PSV) cm/sec ----- Left CCA: 55.5 ----- Left ICA: 74.3 ----- Left ECA: 43.6 ICA/CCA ratio: 1.3 LEFT: End Diastole cm/sec ----- Left CCA: 17.1 ----- Left ICA: 29.2 ----- Left ECA: 7.5 VERTEBRALS (direction of flow): Right Vertebral: Antegrade Left Vertebral: Antegrade IMPRESSION: No hemodynamically significant stenosis appreciated in either internal carotid artery. Criteria for Assigning % of Stenosis / Diameter reduction (Estimation based on the indirect measurements of the internal carotid artery velocities (ICA PSV). 1. Normal (no stenosis)=ICA PSV < 125 cm/s: ratio < 2.0: ICA EDV<40 cm/s. 2. Less than 50% stenosis=ICA PSV < 125 cm/s: ratio < 2.0: ICA EDV<40 cm/s. 3. 50 to 69% stenosis=ICA PSV of 125 to 230 cm/s: ration 2.0 ? 4.0: ICA EDV 40-100 cm/s. 4. Greater than 70% stenosis to near occlusion= ICA PSV > 230 cm/s: ratio > 4.0: ICA EDV > 100 cm/s. 5. Near occlusion= ICA PSV velocities may be low or undetectable: variable ratio and ICA EDV. 6. Total occlusion=unable to detect flow.
--- NOTE | 2017-02-26 18:40 | CT ---
EXAMINATION TYPE: CT abdomen pelvis w con DATE OF EXAM: 02/26/2017 COMPARISON: 01/24/2017 HISTORY: 76-year-old female with epigastric pain. History of breast cancer and lung mass. TECHNIQUE: Contiguous axial scanning of the abdomen and pelvis following administration of 100 ml Omn ipaque 300 IV contrast. Delayed images through the kidneys and coronal/sagittal reconstructions perf ormed. CT DLP: 405.80 mGycm Automated exposure control for dose reduction was used. FINDINGS: The heart is upper limits of normal in size. No pericardial effusion. There is a new small left pleur al effusion and suggestion of some leftward cardiac shift suggesting new left hemithoracic volume los s. Small hiatal hernia with some oral contrast in the hernia sac. Bile duct caliber appears more pronounced now measuring 1.5 cm on coronal series though the duct does taper distally. Slightly more pronounced intrahepatic biliary ductal dilatation as well. Cholecystec cece clips are present. The portal vein appears patent. Stable 2.9 cm lobulated cyst in the segment 3 left liver lobe. Left adrenal gland nodule now measures 1.5 cm versus 1.0 cm, previously. The right adrenal gland, kid neys, spleen, and atrophic pancreas show no gross abnormality. No dilated small bowel, free fluid, or free air. Mild to moderate stool burden. No pericolonic inflammatory change seen. Mild diffuse anasarca type changes present. Mild atherosclerotic calcifications of the abdominal aorta. No mesenteric or retroperitoneal lymphadenopathy seen. However, there is a possible new 1 cm soft tis stephany deposit anterior right paramedian intrapelvic space, axial image 54. Bladder is urine distended. Uterus with multiple calcified fibroids is visualized and some prominent left periuterine varices. No abnormal fluid collection in the pelvis or pelvic lymphadenopathy seen. Bones: There is hardware artifact relating to the patient's right hip total arthroplasty. Posterior f usion changes in the lumbar spine with corresponding laminectomies. Advanced multilevel degenerative changes are present with similar superior endplate Schmorl's node of T12. However, there is new super ior end plate irregularity of T11 and a subtle Clinical injury is difficult to exclude. IMPRESSION: 1. NEW SMALL LEFT PLEURAL EFFUSION AND SLIGHT LEFTWARD SHIFT OF THE HEART SUGGESTING NEW VOLUME LOSS IN THE LEFT HEMITHORAX. 2. DISEASE PROGRESSION WITH ENLARGING LEFT ADRENAL GLAND MASS (1.5 CM VERSUS 1.0 CM, PREVIOUSLY). 3. POSSIBLE NEW 1 CM PERITONEAL DEPOSIT IN THE ANTERIOR RIGHT PELVIS. 4. SLIGHTLY INCREASING INTRAHEPATIC AND EXTRAHEPATIC BILIARY DUCTAL DILATATION. THESE CHANGES ARE LIK VANCE IN PART DUE TO PATIENT'S POSTCHOLECYSTECTOMY STATUS. HOWEVER, GIVEN INCREASING CALIBER OF THE RUSSEL E DUCT, CORRELATE WITH ALKALINE PHOSPHATASE AND BILIRUBIN LEVELS. NO OBSTRUCTING LESION SEEN BY CT. 5. FINDINGS SUSPICIOUS FOR SUBTLE NEW SUPERIOR ENDPLATE FRACTURE OR ACUTE SCHMORL'S NODE OF T11. OVER ALL VERTEBRAL BODY HEIGHT IS MAINTAINED AT THIS TIME.
[2017-02-26] MEDS: VALSARTAN 80 MG TAB PO SCH (20:12)
[2017-02-26] MEDS: DOCUSATE 100 MG CAP PO SCH (20:13)
--- NOTE | 2017-02-27 07:54 | MR ---
EXAMINATION TYPE: MR brain wo/w con DATE OF EXAM: 02/27/2017 COMPARISON: 12/22/2015 HISTORY: syncope, CA history CONTRAST: Performed utilizing 5 mL intravenous Gadavist gadolinium contrast. TECHNIQUE: Multiplanar, multiecho imaging on a 3.0 Steph magnet is performed through the brain. Stud y is performed within 24 hours of arrival to the hospital. The craniovertebral junction is normal. The pituitary is normal. Diffusion-weighted imaging is performed. There appear to be multiple scattered areas of focal increa sed signal on diffusion-weighted imaging. This would include the subcortical white matter in the marie on of the left watershed. Series 305 image 136. Subcortical area in the left posterior parietal lobe. Series 305 image 176. And small focal areas in the posterior centrum semiovale bilaterally, series 3 05 image 200. There may be some increased signal within the lateral left thalamus. Series 305, image 128. Confluent periventricular white matter hyperintensity is present on T2 and inversion recovery weighte d sequences. Additional subcortical white matter changes are evident. Ventricles and sulci are prominent for the patient age. No abnormal enhancement is evident. Intracranial cerebral vasculature appears unremarkable. IMPRESSIONS: 1. Multiple bilateral scattered hyperintensities can be compatible with the acute ischemic changes. D ifferential could include other etiologies including acute multiple sclerosis plaques, metastatic dis ease, infectious etiologies such as Lyme disease. 2. Chronic appearing periventricular white matter ischemic changes appear confluent with adjacent atr ophy of the brain. 3. No obvious mass or mass effect is identified. 4. Close follow-up is recommended.
[2017-02-27] MEDS: DOCUSATE 100 MG CAP PO SCH ×2 (10:10→20:39)
[2017-02-27] MEDS: VALSARTAN 80 MG TAB PO SCH ×2 (10:10→20:40)
[2017-02-27] MEDS: Acetaminophen-Codeine 300-30mg TAB PO PRN (10:26)
[2017-02-27] MEDS: ONDANSETRON 4 MG/2 ML VIAL IVP PRN (10:26)
[2017-02-27] MEDS: DEXAMETHASONE 4 MG TAB PO SCH ×2 (11:01→15:37)
--- NOTE | 2017-02-27 15:11 | P.PN ---
Subjective This is a 75-year-old female, patient of Dr. Patricia and Dr. Hernandez, with history of breast cancer in 2013 on the right side status post lumpectomy without chemotherapy and radiation with no lymph node involvement. Patient has also been found to have a large left sided lung , metastatic disease from breast cancer since then. She also has past medical history for gastroesophageal reflux disease, hyperlipidemia, hypertension. She presented to the emergency room secondary to acute episode of syncope, patient was getting out of bed and passed out. History is provided by the , and patient was in a seated position wheeling herself from the bed to the living room with her Rollator walker when she passed out in a sitting position. There is no trauma no contusion to the floor, the EMS was later called in 5 minutes later, the patient was starting to arouse this lethargic starting to arouse per the noticed something flapping intermittently, unsure whether its her arms underneath her Clothing or coughing spells with her belly moving up and about. However this doesn't make sense as the did not hear her cough or vomit. When seen emergency room, patient was slightly lethargic and was progressively getting better with mentation, no focal neurologic deficits including speech abnormality, patient also has had diminished appetite for the past several weeks with a 14 pound weight loss in 1 month, patient denies any dysuria, no hematuria no diarrhea. Patient complaints of abdominal pain for which CAT scan of the abdomen and pelvis was performed January 24 that shows new metastatic lesions to the adrenals , and liver cyst pain is in the right upper quadrant region. She saw Dr. Patricia 2 -3 days ago, for the abdominal pain, no new medication changes were made at that time, patient's on Tylenol 3 patient denies any obstipation or abdominal distention Emergency room, urinalysis is unremarkable, no new imaging of the brain was obtained as patient had a CAT scan performed January 24, 2017 with brain at the free possibility of normal pressure hydrocephalus, no ischemic changes then. 02/27: Patient was seen and evaluated today. She had a MRI of the brain today that showed multiple bilateral scattered hyperintensities that most likely represents metastasis to the brain. Keppra started for seizure prophylaxis and oncology will be consulted. Neurology artery on consult. Carotid ultrasound shows no significant stenosis. Objective - Vital Signs Vital signs: Vital Signs Temp 97.6 F 02/27/17 07:00 Pulse 74 02/27/17 07:00 Resp 16 02/27/17 07:00 BP 159/90 02/27/17 07:00 Pulse Ox 98 02/27/17 08:53 Intake & Output 02/26/17 02/27/17 02/27/17 18:59 06:59 18:59 Weight 54.431 kg Other: Voiding Method Bedpan Diaper # Voids 2 3 # Bowel Movements 0 - Exam - Constitutional General appearance: cooperative, no acute distress, thin - EENT Eyes: anicteric sclerae, EOMI, PERRLA, dentition normal, normal appearance ENT: hard of hearing, NA/AT, normal oropharynx - Neck Neck: normal ROM - Respiratory Respiratory: bilateral: CTA, negative: diminished, dullness, rales, rhonchi, wheezing - Cardiovascular Rhythm: regular Heart sounds: normal: S1, S2 Abnormal Heart Sounds: no systolic murmur, no diastolic murmur, no rub, no S3 Gallop, no S4 Gallop, no click, no other - Gastrointestinal General gastrointestinal: normal bowel sounds, soft - Integumentary Integumentary: decreased turgor, normal - Neurologic Neurologic: CNII-XII intact - Musculoskeletal Musculoskeletal: generalized weakness, strength equal bilaterally - Psychiatric Psychiatric: A&O x's 3, appropriate affect, intact judgment & insight - Labs CBC & Chem 7: 02/26/17 09:45 02/26/17 09:45 Labs: Abnormal Lab Results - Last 24 Hours (Table) 02/26/17 02/26/17 Range/Units 09:45 09:45 APTT 20.4 L (22.0-30.0) sec Glucose 125 H (74-99) mg/dL AST 49 H (14-36) U/L Alkaline Phosphatase 147 H (38-126) U/L Assessment and Plan Plan: 1. Acute syncope most likely neurologic in origin, possibility of seizures with postictal-like appearance. MRI of the brain shows new lesions likely metastasis from her breast cancer. Keppra was started for prophylaxis for seizures and oncology consulted. 2. Known history of breast cancer with metastasis to the left lung mass, and left adrenals, follows by Dr. Shepard consulted 3. Uncontrolled hypertension, valsartan 80 mg twice a day was started, patient' s family refused any AMARI inhibitor secondary to Amari cough 4. Right upper quadrant pain with previous history of cholecystectomy, liver cyst noted on the previous CT less than 4 weeks ago, patient would have bowel prophylaxis secondary to her Tylenol 3 that she takes, Colace started with when necessary Dulcolax 5. 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 Dehydration secondary to diminished appetite 8. Moderate calorie protein malnutrition secondary to cachexia from malignancy GI prophylaxis DVT prophylaxis The above impression and plan of care have been discussed and directed by signing physician. Janine Young nurse practitioner acting as scribe for signing physician.
--- NOTE | 2017-02-27 15:16 | P.PN ---
Subjective Principal diagnosis: Addendum This is a pleasant 76-year-old female continuing be evaluated by the neurology service for a syncopal episode. She was found unresponsive by her was some possible convulsing versus coughing. She has no previous history of seizures. She has a significant history of breast cancer with recent CT showing a large left lung mass and also an adrenal mass. Repeat CT did show enlargement of that adrenal mass. The study did also so a new small left pleural effusion, possible new 1 cm peritoneal deposits and anterior right pelvis, and a possible subtle new superior endplate fracture at T11. Complaining of significant back pain at this time. Initial CT of the brain showed no acute intracranial abnormalities. We did perform an MRI with and without contrast that didn't show the possibility of metastatic disease. Her oncologist has been notified and an urgent consult has been placed. Time my exam she is resting comfortably in bed having just returned from her EEG. Given the findings on her MRI she has been started on dexamethasone and Keppra 500 mg twice a day for seizure prevention. Objective - Vital Signs Vital signs: Vital Signs Temp 97.6 F 02/27/17 07:00 Pulse 74 02/27/17 07:00 Resp 16 02/27/17 07:00 BP 159/90 02/27/17 07:00 Pulse Ox 98 02/27/17 08:53 Intake & Output 02/26/17 02/27/17 02/27/17 18:59 06:59 18:59 Weight 54.431 kg Other: Voiding Method Bedpan Bedpan Diaper Diaper # Voids 2 3 # Bowel Movements 0 - Constitutional General appearance: Present: no acute distress, thin - EENT Eyes: Present: EOMI, PERRLA. Absent: abnormal pupil, ptosis ENT: Present: hearing grossly normal - Neck Neck: Present: normal ROM. Absent: rigidity - Respiratory Respiratory: negative: prolonged expiration, prolonged inspiration - Cardiovascular Rhythm: regular - Gastrointestinal General gastrointestinal: Present: tenderness. Absent: distended - Neurologic Neurologic Comment(s): Patient is alert awake and oriented 3. Speech-language are normal. There is no facial asymmetry. There is no lateralizing weakness. There is no sensory deficit noted. No tremors or seizure-like activities are seen. - Labs CBC & Chem 7: 02/26/17 09:45 02/26/17 09:45 Assessment and Plan (1) Convulsions Status: Suspected (2) Urinary incontinence Status: Chronic (3) Gait abnormality Status: Chronic (4) Syncope and collapse Status: Acute (5) History of right breast cancer Status: Chronic Plan: She has suffered a syncopal episode of unknown origin. As above, given the abnormalities on her updated MRI of the brain, oncology will now follow. Her carotid Doppler showed no hemodynamically significant stenosis. Continue to work with physical therapy. Continue seizure precautions. Continue Keppra as ordered. There may also be a component of normal pressure hydrocephalus, which is not an acute concern right now. She has long-standing urinary incontinence which her says has been worse recently. She has long-standing gait abnormalities which her also says have been worse lately. She is not confused. We could perform an outpatient lumbar puncture and do a large volume drainage to see if these symptoms improve. This would be diagnostic for normal pressure hydrocephalus. Barring any serious unforeseen abnormalities on her EEG we can be consulted as needed for any questions or concerns. I have performed a history and physical on the above patient. I have reviewed the above note, and agree.
[2017-02-27] MEDS: levETIRAcetam 500 MG TAB PO SCH ×2 (15:37→20:39)
--- NOTE | 2017-02-27 16:48 | P.CONS ---
History of Present Illness - Reason for Consult Consult date: 02/27/17 metastatic breast cancer, possible new mets to brain Requesting physician: Giorgi Schuster - Chief Complaint syncopy - History of Present Illness Pt is a very pleasant female pt of Dr. Hernandez found in August 2011 to have suspicious right breast finding on routine mammogram. Core biopsy was done which revealed invasive carcinoma, she had a 2nd opinion at [facility], with recommendation for lumpectomy followed by radiation or mastectomy with sentinel lymph node biopsy. 12/13/11 pt had right partial mastectomy and sentinel nodes biopsy, she did have re-excision once with 1mm negative margin, final path revealed a 3.7cm high grade carcinoma, ER negative, PA weakly positive, HER2 negative, pt declined re- excision,chemotherapy and adjuvant radiation. Mammogram 08/20/12 was normal, bone scan 11/29/12 revealed arthritic changes. She continued on f/u and did well until 06/02 when she fell. CXR was done routinely and a LLL mass was found incidentally. CT chest showed large LLL lung mass and smaller lung nodules, 11/24/15 biopsy of LLL lung mass was positive for metastatic breast cancer, ER weakly positive, PA/ Her2 negative. Pt declined chemotherapy but agreed to try femara for the benefit of the doubt since her cancer was weekly hormone receptor positive, pt started femara 12/02. She has stable disease on follow up until May 2016 when LLL lung mass increased in size. Pt decided not to pursue any treatment. repeat CXR revealed stable LLL lung mass, she has been over all stable since then, last f/u was in December, she is due for f/u in 2 weeks. Pt states progressive weakness recently and weight loss but that has been over about 2 years, she has also noted her thinking is "not clear" for about the last month. She denies night sweats, dysphagia, appetite is fair, no nausea, cough, chast pain, abd pain, she has been incontinent of urine for a long time, denies incontinence of stool, no numbness or tingling in the upper or lower extremities, her RUE has been weak due to shoulder pain, this is not new or worse. She states passing out and her contacting EMS, she has not had syncopy since admission, she has never had this before. Review of Systems All systems: negative (exceptions as stated in HPI) Past Medical History Past Medical History: Cancer, GERD/Reflux, Hyperlipidemia, Hypertension Additional Past Medical History / Comment(s): Metastatic lung mass november [address] Shepard. breast Ca - 2013 status post right lumpectomy History of Any Multi-Drug Resistant Organisms: None Reported Past Surgical History: Back Surgery, Cholecystectomy, Joint Replacement, Orthopedic Surgery Additional Past Surgical History / Comment(s): bilateral bunionectomy, right hip replacement, right breast lumpectomy - no chemo, no radiation, bilateral cataract removal and intraocular lens implants. Past Anesthesia/Blood Transfusion Reactions: No Reported Reaction Past Psychological History: No Psychological Hx Reported Smoking Status: Never smoker Past Alcohol Use History: Daily Past Drug Use History: None Reported - Past Family History Sister(s) Family Medical History: Cancer Additional Family Medical History / Comment(s): Patient has 2 sisters. One sister is alive with dementia. One sister from pancreatic cancer. Brother(s) Family Medical History: Cancer Additional Family Medical History / Comment(s): Brother from spinal cancer Father Additional Family Medical History / Comment(s): Father at age 88 from dementia. Mother Additional Family Medical History / Comment(s): Mother at age 93 from old age with no major medical problems. Son(s) Additional Family Medical History / Comment(s): Patient has 2 sons with no major medical problems. Medications and Allergies Home Medications Medication Instructions Recorded Confirmed Type Acetaminophen-Codeine 300-30mg 1 tab PO Q6H PRN #15 tablet 05/26/15 02/26/17 Rx [Tylenol w/codeine #3] Allergies Allergy/AdvReac Type Severity Reaction Status Date / Time No Known Allergies Allergy Verified 02/26/17 10:32 Physical Exam Vitals: Vital Signs Temp Pulse Resp BP BP BP BP 02/27/17 08:53 02/27/17 07:00 97.6 F 74 16 154/86 126/71 159/90 02/27/17 03:02 132/84 123/77 159/88 02/26/17 22:44 98.2 F 81 14 138/76 Pulse Ox 02/27/17 08:53 98 02/27/17 07:00 98 02/27/17 03:02 02/26/17 22:44 96 Intake and Output 02/27/17 02/27/17 02/27/17 06:59 14:59 22:59 Other: Voiding Method Bedpan Bedpan Diaper Diaper # Voids 3 # Bowel Movements 0 - Constitutional General appearance: cooperative, no acute distress, thin - EENT dry mucus membranes Eyes: anicteric sclerae, PERRLA, normal appearance - Neck Neck: no lymphadenopathy - Respiratory Respiratory: right: CTA, left: diminished (laterally) - Cardiovascular Heart sounds: normal: S1, S2 leg Peripheral Edema: bilateral: None - Gastrointestinal General gastrointestinal: no absent bowel sounds, no decreased bowel sounds, no distended, no hepatomegaly, no hyperactive bowel sounds, normal bowel sounds, no organomegaly, no rigid, no scaphoid, soft, no splenomegaly, no tenderness, no umbilical hernia, no ventral hernia - Integumentary Integumentary: pale - Musculoskeletal Right shoulder has decreased ROM, not new or progressive Musculoskeletal: generalized weakness - Psychiatric Psychiatric: A&O x's 3, appropriate affect, intact judgment & insight Results CBC & Chem 7: 02/26/17 09:45 02/26/17 09:45 Comments: carotid doppler report reviewed CT scan - abdomen: report reviewed CT scan - pelvis: report reviewed MRI - head: report reviewed Assessment and Plan (1) Syncope and collapse Narrative/Plan: Pt is being worked up for possible cause, nothing identified yet. Pt has not had episode since admit, Neurology on consult. Possible need for cardiology consult Status: Acute (2) History of right breast cancer Narrative/Plan: Pt due for follow up with Dr. Hernandez in about 10 days. Pt usually has CXR done so report will be given to Dr. Hernandez for review. Pt has refused treatment in the past, it does appear that her lung mass is increasing in size and quite possibly causing symptoms. Will follow up in AM with pt with treatment options based on imaging review with Dr. Hernandez. Case discussed with Dr. Simeon Rad Onc, he has been consulted to review MRI of the brain. Did review Neurology notes, Dr. Simeon did contact Hem/Onc after review. The consensus is that the MRI of the brain is negative for metastasis so, will discontinue dexamethasone at this time. Pt will continue on keppra per [facility] recommendations. Further work up to be decided by Attending. Status: Chronic
--- NOTE | 2017-02-27 16:57 | P.CONS ---
History of Present Illness - Reason for Consult Consult date: 02/27/17 syncope ?brain mets Requesting physician: Kari Hayes - Chief Complaint syncope - History of Present Illness Patient is a 76-year-old female with a history of right-sided breast cancer, reportedly treated surgically followed by adjuvant radiation several years ago. Unfortunately, in November 2015 the patient was found to have a large lung lesion in the left hilum/upper lobe, biopsy-proven to be recurrent breast cancer. She has been followed with Dr. Hernandez and medical oncology. Her disease appear to be triple negative at diagnosis, and it is unclear she has received any specific treatment since her diagnosis. The patient was admitted on February 26 secondary to an episode where she passed out. Although the patient is unable to report this, according to the chart this was witnessed by her . She had transferred from her bed into a wheelchair, and slumped over in the seated position. When EMS was called, the patient was notably lethargic. In the emergency room, she was found to be alert and oriented. CT imaging of the abdomen and pelvis was performed revealing a slight increase in hepatic intraductal dilation, a 1.5 cm adrenal nodule which had progressed, as well as concern for progression in the lungs although incompletely imaged. The patient did undergo an MRI of the brain on February 27 revealing scattered areas of focal increased signal on diffusion imaging. There was noted to be no abnormal masses or enhancement visible. Although metastatic disease was considered part of the differential, the most likely reason is possibly ischemic change. The patient reports that she does occasionally have headaches, but that these are not severe. She didn't report having some nausea this morning as well. She denies any difficulty with seizures in the past. According to a supportive family member, the patient does a poor job of staying hydrated and eats very little food at home. She is wheelchair bound, and does not ambulate. Review of Systems Constitutional: Denies chills, Denies fever Eyes: denies blurred vision Cardiovascular: Denies chest pain Respiratory: Reports cough (chronic) Gastrointestinal: Reports abdominal pain (intermittent abdominal pain past few weeks) Genitourinary: Reports urge incontinence Musculoskeletal: Reports low back pain Neurological: Reports confusion, Denies aphasia, Denies change in mentation Past Medical History Past Medical History: Cancer, GERD/Reflux, Hyperlipidemia, Hypertension Additional Past Medical History / Comment(s): Metastatic lung mass november [address] Shepard. breast Ca - 2013 status post right lumpectomy History of Any Multi-Drug Resistant Organisms: None Reported Past Surgical History: Back Surgery, Cholecystectomy, Joint Replacement, Orthopedic Surgery Additional Past Surgical History / Comment(s): bilateral bunionectomy, right hip replacement, right breast lumpectomy - no chemo, no radiation, bilateral cataract removal and intraocular lens implants. Past Anesthesia/Blood Transfusion Reactions: No Reported Reaction Past Psychological History: No Psychological Hx Reported Smoking Status: Never smoker Past Alcohol Use History: Daily Past Drug Use History: None Reported - Past Family History Sister(s) Family Medical History: Cancer Additional Family Medical History / Comment(s): Patient has 2 sisters. One sister is alive with dementia. One sister from pancreatic cancer. Brother(s) Family Medical History: Cancer Additional Family Medical History / Comment(s): Brother from spinal cancer Father Additional Family Medical History / Comment(s): Father at age 88 from dementia. Mother Additional Family Medical History / Comment(s): Mother at age 93 from old age with no major medical problems. Son(s) Additional Family Medical History / Comment(s): Patient has 2 sons with no major medical problems. Medications and Allergies Home Medications Medication Instructions Recorded Confirmed Type Acetaminophen-Codeine 300-30mg 1 tab PO Q6H PRN #15 tablet 05/26/15 02/26/17 Rx [Tylenol w/codeine #3] Allergies Allergy/AdvReac Type Severity Reaction Status Date / Time No Known Allergies Allergy Verified 02/26/17 10:32 Physical Exam Vitals: Vital Signs Temp Pulse Resp BP BP BP BP 02/27/17 08:53 02/27/17 07:00 97.6 F 74 16 154/86 126/71 159/90 02/27/17 03:02 132/84 123/77 159/88 02/26/17 22:44 98.2 F 81 14 138/76 Pulse Ox 02/27/17 08:53 98 02/27/17 07:00 98 02/27/17 03:02 02/26/17 22:44 96 Intake and Output 02/27/17 02/27/17 02/27/17 06:59 14:59 22:59 Other: Voiding Method Bedpan Bedpan Diaper Diaper # Voids 3 # Bowel Movements 0 - Constitutional General appearance: thin - EENT Eyes: EOMI, PERRLA - Neck Neck: no lymphadenopathy - Respiratory Respiratory: right: diminished, left: CTA - Cardiovascular Rhythm: regular - Gastrointestinal General gastrointestinal: no organomegaly, no rigid, soft - Integumentary Integumentary: no flushed, no jaundiced - Neurologic Neurologic: CNII-XII intact, focal deficits (weakness in bilateral lower extremities - 4/5, right arm abduction weak 2/2 to orthopedic issue) - Psychiatric Psychiatric: A&O x's 3 (EXCEPT thought the year was 2016, so really alert and oriented X2) Results CBC & Chem 7: 02/26/17 09:45 02/26/17 09:45 CT scan - abdomen: report reviewed, image reviewed MRI - head: report reviewed, image reviewed Assessment and Plan Plan: 1. Syncope: Based on my review of the MRI, I do not feel the patient has any clear evidence of brain metastasis. Furthermore, I do not believe the patient has any findings that would explain her syncope. Although there are some small diffusion changes, there are no clear focal areas indicating a stroke, and there are certainly no lesions causing mass effect. To ensure stability of this scan, I would recommend the patient undergo repeat MRI in 4-6 weeks. I am also skeptical that the patient had a true seizure. 2. Debility: The patient presents with unfortunately poor performance status. Considering its the first time I've met the patient, and the patient's was not present, I did not feel that it was appropriate to bring up hospice at this time. The patient does appear to be a hospice appropriate referral, as she has evidence of progressive disease with a declining performance status. There is no need for radiotherapy at this time. Do not hesitate to call if you have any questions or concerns regarding this patient. Time with Patient: Greater than 30
--- NOTE | 2017-02-27 20:44 | EEG ---
ELECTROENCEPHALOGRAM REPORT DATE OF SERVICE: 02/27/2017. REASON FOR TESTING: Syncope. DESCRIPTION OF THE PROCEDURE: This EEG was performed using a 21 channel digital electroencephalograph following international 10-20 system. DESCRIPTION OF THE RECORDING: From the beginning of the tracing, with patient's eyes closed, the background rhythm was mostly consisting of 8 Hz alpha frequency in the posterior occipital leads. No obvious asymmetry is seen. Photic stimulation was performed with a minimal driving response seen. No pathological waves were elicited. Hyperventilation was not performed. Later in the tracing, the patient does reach stage II of sleep, and occasional sleep spindles are seen along with K complexes. No epileptiform discharges were seen. Her EKG lead showed a regular rate and rhythm. INTERPRETATION: This asleep and awake EEG can be considered within normal limits. There was no asymmetry seen. No epileptiform discharges were noticed. The absence of epileptiform discharges does not rule out the diagnosis of epilepsy, therefore clinical correlation is recommended. MMSUDHIR / NELIDA: [id number] /
[2017-02-28] MEDS: VALSARTAN 80 MG TAB PO SCH ×2 (07:58→23:19)
[2017-02-28] MEDS: DOCUSATE 100 MG CAP PO SCH ×2 (07:59→20:47)
[2017-02-28] MEDS: levETIRAcetam 500 MG TAB PO SCH ×2 (07:59→20:47)
[2017-02-28 08:47] LABS: Basophils % (A) 0 %; CH 31.5; Eosinophils % (A) 0 %; HCT 41.3 % (34.0-46.0); HDW 2.47; HGB 13.8 gm/dL (11.4-16.0); Luc # (Auto) 0.08; Luc % (Auto) 1; Lymphocytes # (A) 1.4 k/uL (1.0-4.8); Lymphocytes % (A) 22 %; MCH 31.2 pg (25.0-35.0); MCHC 33.5 g/dL (31.0-37.0); MCV 93.2 fL (80.0-100.0); Mean Platelet Volume 7.1; Monocytes # (A) 0.4 k/uL (0-1.0); Monocytes % (A) 6 %; Neutrophils # (A) 4.3 k/uL (1.3-7.7); Neutrophils % (A) 70 %; RBC 4.43 m/uL (3.80-5.40); RDW 13.2 % (11.5-15.5); WBC 6.1 k/uL (3.8-10.6); WBC (Perox) 6.19
[2017-02-28 09:14] LABS: ALT 33 U/L (9-52); AST 30 U/L (14-36); Alkaline Phosphatase 131 U/L (38-126); Anion Gap 10 mmol/L; Blood Urea Nitrogen 19 mg/dL (7-17); Calcium 9.7 mg/dL (8.4-10.2); Carbon Dioxide 29 mmol/L (22-30); Chloride 98 mmol/L (98-107); Glucose 109 mg/dL (74-99); Non-African American GFR(MDRD) >60 (>60 ml/min/1.73 sqM); Potassium 4.2 mmol/L (3.5-5.1); Sodium 137 mmol/L (137-145); Total Bilirubin 0.7 mg/dL (0.2-1.3)
--- NOTE | 2017-02-28 12:13 | P.PN ---
Subjective This is a 75-year-old female, patient of Dr. Patricia and Dr. Hernandez, with history of breast cancer in 2013 on the right side status post lumpectomy without chemotherapy and radiation with no lymph node involvement. Patient has also been found to have a large left sided lung , metastatic disease from breast cancer since then. She also has past medical history for gastroesophageal reflux disease, hyperlipidemia, hypertension. She presented to the emergency room secondary to acute episode of syncope, patient was getting out of bed and passed out. History is provided by the , and patient was in a seated position wheeling herself from the bed to the living room with her Rollator walker when she passed out in a sitting position. There is no trauma no contusion to the floor, the EMS was later called in 5 minutes later, the patient was starting to arouse this lethargic starting to arouse per the noticed something flapping intermittently, unsure whether its her arms underneath her Clothing or coughing spells with her belly moving up and about. However this doesn't make sense as the did not hear her cough or vomit. When seen emergency room, patient was slightly lethargic and was progressively getting better with mentation, no focal neurologic deficits including speech abnormality, patient also has had diminished appetite for the past several weeks with a 14 pound weight loss in 1 month, patient denies any dysuria, no hematuria no diarrhea. Patient complaints of abdominal pain for which CAT scan of the abdomen and pelvis was performed January 24 that shows new metastatic lesions to the adrenals , and liver cyst pain is in the right upper quadrant region. She saw Dr. Patricia 2 -3 days ago, for the abdominal pain, no new medication changes were made at that time, patient's on Tylenol 3 patient denies any obstipation or abdominal distention Emergency room, urinalysis is unremarkable, no new imaging of the brain was obtained as patient had a CAT scan performed January 24, 2017 with brain at the free possibility of normal pressure hydrocephalus, no ischemic changes then. 02/27: Patient was seen and evaluated today. She had a MRI of the brain today that showed multiple bilateral scattered hyperintensities that most likely represents metastasis to the brain. Keppra started for seizure prophylaxis and oncology will be consulted. Neurology already on consult. Carotid ultrasound shows no significant stenosis. 02/28: Patient was evaluated today, she is resting comfortably in bed. She has not had any further syncopal episodes or seizure activity. Keppra was started yesterday patient is tolerating medication well with no adverse reactions. Oncology is on consult, radiation/oncology reviewed MRI of brain, the consensus was that MRI of brain is negative for metastasis, dexamethasone was discontinued. Keppra will be continued. Recommendations are to repeat MRI in 4 -6 weeks. Objective - Vital Signs Vital signs: Vital Signs Temp 97.0 F L 02/28/17 07:00 Pulse 93 02/28/17 10:24 Resp 18 02/28/17 10:24 BP 112/76 02/28/17 07:00 Pulse Ox 96 02/28/17 07:00 Intake & Output 02/27/17 02/28/17 02/28/17 18:59 06:59 18:59 Other: Voiding Method Bedpan Bedpan Diaper Diaper # Voids 2 2 # Bowel Movements 0 - Exam - Constitutional General appearance: cooperative, no acute distress, thin - EENT Eyes: anicteric sclerae, EOMI, PERRLA, dentition normal, normal appearance ENT: hard of hearing, NA/AT, normal oropharynx - Neck Neck: normal ROM - Respiratory Respiratory: bilateral: CTA, negative: diminished, dullness, rales, rhonchi, wheezing - Cardiovascular Rhythm: regular Heart sounds: normal: S1, S2 Abnormal Heart Sounds: no systolic murmur, no diastolic murmur, no rub, no S3 Gallop, no S4 Gallop, no click, no other - Gastrointestinal General gastrointestinal: normal bowel sounds, soft - Integumentary Integumentary: decreased turgor, normal - Neurologic Neurologic: CNII-XII intact - Musculoskeletal Musculoskeletal: generalized weakness, strength equal bilaterally - Psychiatric Psychiatric: A&O x's 3, appropriate affect, intact judgment & insight - Labs CBC & Chem 7: 02/28/17 08:10 02/28/17 08:10 Labs: Abnormal Lab Results - Last 24 Hours (Table) 02/28/17 Range/Units 08:10 BUN 19 H (7-17) mg/dL Glucose 109 H (74-99) mg/dL Alkaline Phosphatase 131 H (38-126) U/L Assessment and Plan Plan: 1. Acute syncope most likely neurologic in origin, possibility of seizures with postictal-like appearance. MRI of the brain shows new lesions, recommendations are to repeat MRI in 4-6 weeks. Keppra was started for prophylaxis for seizures and oncology consulted. 2. Known history of breast cancer with metastasis to the left lung mass, and left adrenals, followed by Dr. Shepard consulted 3. Uncontrolled hypertension, valsartan 80 mg twice a day was started, patient' s family refused any AMARI inhibitor secondary to Amari cough 4. Right upper quadrant pain with previous history of cholecystectomy, liver cyst noted on the previous CT less than 4 weeks ago, patient would have bowel prophylaxis secondary to her Tylenol 3 that she takes, Colace started with when necessary Dulcolax 5. 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 Dehydration secondary to diminished appetite 8. Moderate calorie protein malnutrition secondary to cachexia from malignancy GI prophylaxis DVT prophylaxis The above impression and plan of care have been discussed and directed by signing physician. Janine Young nurse practitioner acting as scribe for signing physician.
[2017-02-28] MEDS: Acetaminophen-Codeine 300-30mg TAB PO PRN (14:35)
[2017-02-28 15:06] VITALS: RESP 16
[2017-03-01] MEDS: levETIRAcetam 500 MG TAB PO SCH (08:02)
[2017-03-01] MEDS: DOCUSATE 100 MG CAP PO SCH (08:02)
[2017-03-01 08:09] VITALS: BP 109/55; TEMP 97.2
[2017-03-01] MEDS ORDERED: Acetaminophen-Codeine 300-30mg TAB PO PRN (08:41)
[2017-03-01 08:42] LABS: Basophils % (A) 0 %; CH 31.6; CHCM 34.2; Eosinophils % (A) 0 %; HCT 41.4 % (34.0-46.0); HDW 2.46; HGB 13.7 gm/dL (11.4-16.0); Luc # (Auto) 0.06; Luc % (Auto) 1; Lymphocytes # (A) 1.3 k/uL (1.0-4.8); Lymphocytes % (A) 14 %; MCH 30.8 pg (25.0-35.0); MCHC 33.2 g/dL (31.0-37.0); MCV 92.9 fL (80.0-100.0); Mean Platelet Volume 7.1; Monocytes # (A) 0.5 k/uL (0-1.0); Monocytes % (A) 6 %; Neutrophils # (A) 7.2 k/uL (1.3-7.7); Neutrophils % (A) 79 %; RBC 4.45 m/uL (3.80-5.40); RDW 13.8 % (11.5-15.5); WBC 9.2 k/uL (3.8-10.6); WBC (Perox) 8.47
[2017-03-01 08:54] LABS: ALT 36 U/L (9-52); AST 44 U/L (14-36); Alkaline Phosphatase 156 U/L (38-126); Anion Gap 10 mmol/L; Blood Urea Nitrogen 26 mg/dL (7-17); Calcium 9.4 mg/dL (8.4-10.2); Carbon Dioxide 28 mmol/L (22-30); Chloride 100 mmol/L (98-107); Glucose 95 mg/dL (74-99); Non-African American GFR(MDRD) >60 (>60 ml/min/1.73 sqM); Sodium 138 mmol/L (137-145); Total Bilirubin 0.6 mg/dL (0.2-1.3); Total Protein 6.9 g/dL (6.3-8.2)
--- NOTE | 2017-03-01 09:36 | XR ---
EXAMINATION TYPE: XR shoulder complete RT DATE OF EXAM: 03/01/2017 CLINICAL HISTORY: pain TECHNIQUE: Three views of the right shoulder are obtained. COMPARISON: None FINDINGS: There is evidence of chronic rotator cuff tear. Cranial migration of the humerus relative t o the central glenoid axis. Remodeling of the acromion and glenoid. Marked subacromial joint space na rrowing. Chronic distal clavicular fracture is not excluded. Severe AC joint arthropathy. IMPRESSION: No evidence for acute fracture. Severe degenerative changes noted. Chronic rotator cuff tear.
[2017-03-01] MEDS: VALSARTAN 80 MG TAB PO SCH (10:31)
--- NOTE | 2017-03-01 11:18 | P.DS ---
Providers Date of admission: 02/26/17 11:43 Expected date of discharge: 03/01/17 Attending physician: Akua Gates Consults: 02/26/17 11:43 Consult Physician Urgent Consulting Provider: Eladio Garrett Consult Reason/Comments: Syncope/Lung mass with poss mets Do you want consulting provider notified?: Yes 02/26/17 14:38 Consult Physician Routine Consulting Provider: Gokul Ashby Consult Reason/Comments: syncope, poss seizure Do you want consulting provider notified?: Already Contacted 02/27/17 09:55 Consult Physician Routine Consulting Provider: Modesto Simeon Consult Reason/Comments: met breast cancer to lung, suspicious MRI brain, please review Do you want consulting provider notified?: Already Contacted 03/01/17 09:08 Consult Physician Routine Consulting Provider: Raji Larry Consult Reason/Comments: frozen shoulder, pain Do you want consulting provider notified?: Yes Primary care physician: [facility] Course: This is a 75-year-old female, patient of Dr. Patricia and Dr. Hernandez, with history of breast cancer in 2012 on the right side status post lumpectomy without chemotherapy and radiation with no lymph node involvement. Patient has also been found to have a large left sided lung , metastatic disease from breast cancer since then. She also has past medical history for gastroesophageal reflux disease, hyperlipidemia, hypertension. She presented to the emergency room secondary to acute episode of syncope, patient was getting out of bed and passed out. History is provided by the , and patient was in a seated position wheeling herself from the bed to the living room with her Rollator walker when she passed out in a sitting position. There is no trauma no contusion to the floor, the EMS was later called in 5 minutes later, the patient was starting to arouse this lethargic starting to arouse per the noticed something flapping intermittently, unsure whether its her arms underneath her Clothing or coughing spells with her belly moving up and about. However this doesn't make sense as the did not hear her cough or vomit. When seen emergency room, patient was slightly lethargic and was progressively getting better with mentation, no focal neurologic deficits including speech abnormality, patient also has had diminished appetite for the past several weeks with a 14 pound weight loss in 1 month, patient denies any dysuria, no hematuria no diarrhea. Patient complaints of abdominal pain for which CAT scan of the abdomen and pelvis was performed January 24 that shows new metastatic lesions to the adrenals , and liver cyst pain is in the right upper quadrant region. She saw Dr. Patricia 2 -3 days ago, for the abdominal pain, no new medication changes were made at that time, patient's on Tylenol 3 patient denies any obstipation or abdominal distention Emergency room, urinalysis is unremarkable, no new imaging of the brain was obtained as patient had a CAT scan performed January 24, 2017 with brain at the free possibility of normal pressure hydrocephalus, no ischemic changes then. 02/27: Patient was seen and evaluated today. She had a MRI of the brain today that showed multiple bilateral scattered hyperintensities that most likely represents metastasis to the brain. Keppra started for seizure prophylaxis and oncology will be consulted. Neurology already on consult. Carotid ultrasound shows no significant stenosis. 02/28: Patient was evaluated today, she is resting comfortably in bed. She has not had any further syncopal episodes or seizure activity. Keppra was started yesterday patient is tolerating medication well with no adverse reactions. Oncology is on consult, radiation/oncology reviewed MRI of brain, the consensus was that MRI of brain is negative for metastasis, dexamethasone was discontinued. Keppra will be continued. Recommendations are to repeat MRI in 4 -6 weeks. 03/01: Patient was noted to be resting comfortably in bed today. Patient complained of some right shoulder pain, xray ordered, showed no acute fracture, severe generative changes and chronic rotator cuff tear. If patient wishes, she can follow-up with orthopedics as an outpatient basis for possible injections to control her pain. She currently has Tylenol No. 3 for pain control. Can the patient has not had any further syncopal episodes or seizure- like activity. She remains on the Keppra for seizure prophylaxis. She will be discharged to a rehab facility for subacute rehab. Discharge diagnoses 1. Acute syncope 2. Breast cancer with metastasis to the left lung mass, and left adrenals 3. Hypertension 4. Right upper quadrant pain with previous history of cholecystectomy 5. Left adrenal metastatic mass 6. 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 Dehydration 8. Moderate calorie protein malnutrition The above impression and plan of care have been discussed and directed by signing physician. Janine Young nurse practitioner acting as scribe for signing physician. Plan - Discharge Summary New Discharge Prescriptions: No Action Acetaminophen-Codeine 300-30mg [Tylenol w/codeine #3] 1 tab PO Q6H PRN #15 tablet PRN Reason: Pain Discharge Medication List Acetaminophen-Codeine 300-30mg [Tylenol w/codeine #3] 1 tab PO Q6H PRN #15 tablet 05/26/15 [Rx] Follow up Appointment(s)/Referral(s): Aren Patricia MD [Primary Care Provider] - 1-2 days Patient Instructions/Handouts: Syncope (DC)
[2017-03-01 11:19] VITALS: PULSE 87
[2017-03-01] MEDS ORDERED: HYDROmorphone 1 MG/ML 1 ML SYRINGE IVP STA (12:11)
--- NOTE | 2017-03-01 17:18 | P.PN ---
Subjective Principal diagnosis: Syncopy Pt seen today in follow up and for family meeting with her . Pt is less talkative today, she denies nausea, difficulty breathing, stomach ache, need to go to the bathroom or pain. Objective - Vital Signs Vital signs: Vital Signs Temp 97.2 F L 03/01/17 08:08 Pulse 87 03/01/17 11:14 Resp 16 03/01/17 11:14 BP 109/55 03/01/17 08:08 Pulse Ox 96 03/01/17 08:08 Intake & Output 02/28/17 03/01/17 03/01/17 18:59 06:59 18:59 Other: Voiding Method Bedpan Bedpan Bedpan Diaper Diaper Diaper # Voids 1 2 2 # Bowel Movements 0 - Constitutional General appearance: Present: cooperative, no acute distress, thin - EENT Eyes: Present: PERRLA, normal appearance - Respiratory Respiratory: right: CTA, left: diminished - Cardiovascular Heart sounds: normal: S1, S2 - Gastrointestinal General gastrointestinal: Present: normal bowel sounds, soft - Integumentary Integumentary: Present: pale - Musculoskeletal Musculoskeletal: Present: generalized weakness - Psychiatric Psychiatric Comment(s): pt calm - Labs CBC & Chem 7: 03/01/17 08:10 03/01/17 08:10 Labs: Abnormal Lab Results - Last 24 Hours (Table) 03/01/17 Range/Units 08:10 BUN 26 H (7-17) mg/dL AST 44 H (14-36) U/L Alkaline Phosphatase 156 H (38-126) U/L Assessment and Plan (1) Syncope and collapse Status: Acute (2) History of right breast cancer Narrative/Plan: Did discuss with the that Neurology and Radiation Oncology have reviewed MRI brain and do not currently suspect brain mets. We did discuss the CT AP and CXR that are suspicious for progressive malignancy. Pt is not a candidate for any traditional cancer therapies due to poor performance status. Did confirm with pt that they do not want traditional medicine treatments and he confirms the same, he is going to treat pt with wormwood at home. All questions answered to the best of my ability Pt is ok for discharge when cleared by attending and consulting services. Can follow up with Dr. Mary GREENE. Status: Chronic
== END 2017-03-01 14:21 | DRG 312 ==
LOC: EC 09:29 → 4MS4W 11:43
PROVIDERS: ADMIT Family Medicine; ATTEND Family Medicine
DX: R55 Syncope and collapse (principal); C78.02 Secondary malignant neoplasm of left lung; C79.31 Secondary malignant neoplasm of brain; E44.0 Moderate protein-calorie malnutrition; C79.72 Secondary malignant neoplasm of left adrenal gland; E86.0 Dehydration; I10 Essential (primary) hypertension; E78.5 Hyperlipidemia, unspecified; K21.9 Gastro-esophageal reflux disease without esophagitis; R10.11 Right upper quadrant pain; Z96.1 Presence of intraocular lens; M25.511 Pain in right shoulder; R32 Unspecified urinary incontinence; R26.9 Unspecified abnormalities of gait and mobility; K76.89 Other specified diseases of liver; Z96.641 Presence of right artificial hip joint; Z98.41 Cataract extraction status, right eye; Z98.42 Cataract extraction status, left eye; Z80.0 Family history of malignant neoplasm of digestive organs; Z90.49 Acquired absence of other specified parts of digestive tract; Z68.23 Body mass index [BMI] 23.0-23.9, adult; Z81.8 Family history of other mental and behavioral disorders; Z85.3 Personal history of malignant neoplasm of breast; Z79.899 Other long term (current) drug therapy; Z99.3 Dependence on wheelchair
CPT/HCPCS: 36415; 70553; 71020; 74177; 80053; 82550; 82553; 83735; 84484; 85025; 85610; 85730; 93005; 93880; 94760; 95819; 96360; 99285